=== PATIENT | female | born 1950 | race Two or more races ===

== ENCOUNTER → 2017-05-03 | Outpatient (REF) | payer MEDICARE ==
[2017-05-03 11:35] LABS: MEAN CORPUSCULAR HEMOGLOBIN 33.1 pg (27.0-33.0); MEAN CORPUSCULAR HGB CONC 33.9 g/dl (32.0-36.5); MEAN CORPUSCULAR VOLUME 97.7 fl (80.0-96.0); WHITE BLOOD COUNT 5.6 K/mm3 (4.0-10.0)
[2017-05-03 11:46] LABS: INR 0.89
[2017-05-03 12:06] LABS: ALBUMIN 3.1 GM/DL (3.2-5.2); ALKALINE PHOSPHATASE 66 U/L (45-117); ALT/SGPT 24 U/L (12-78); ANION GAP 6 MEQ/L (8-16); AST/SGOT 11 U/L (15-37); BILIRUBIN,TOTAL 0.4 MG/DL (0.2-1.0); BLOOD UREA NITROGEN 21 MG/DL (7-18); CALCIUM LEVEL 9.2 MG/DL (8.8-10.2); CARBON DIOXIDE LEVEL 31 MEQ/L (21-32); CHLORIDE LEVEL 106 MEQ/L (98-107); CREATININE FOR GFR 0.79 MG/DL (0.55-1.02); GLOMERULAR FILTRATION RATE > 60.0 (>45); GLUCOSE, FASTING 83 MG/DL (80-110); POTASSIUM SERUM 4.3 MEQ/L (3.5-5.1); SODIUM LEVEL 143 MEQ/L (136-145); TOTAL PROTEIN 6.2 GM/DL (6.4-8.2)
== END ==
LOC: M SFHCLERA 09:21
PROVIDERS: ATTEND Family Medicine
DX: I10 Essential (primary) hypertension (principal)

== ENCOUNTER → 2017-05-11 | Outpatient (CLI) | payer MEDICARE ==
--- NOTE | 2017-05-11 18:36 | REP ---
PA AND LATERAL CHEST X-RAY: 05/11/2017: Clinical history: Preoperative clearance. Comparison: There are no prior studies. Findings: Two-view show the lung page well inflated. CP angles sharply defined. No gross evidence for an effusion. There are post-traumatic changes in the left lateral chest wall with a healed and remodeled rib fracture of the left posterolateral 6th rib. Ill-defined density along the left heart border and superimposed over the left anterior 6th rib is noted. There is superimposed increased density and a lens shape over the heart anteriorly on the lateral view corresponds to the same location. No well-defined nodule or mass. The aorta is mildly tortuous without aneurysm. Normal for age and some ectasia. Airway intact. No mediastinal or hilar mass. The bony thorax shows no focal lesion. Impression: 1. Asymmetric density along the left lateral heart border overlying the left anterior 6th rib and left heart border on frontal view and the heart on the lateral view of the chest. This may be epicardial fat pad but in the absence of any other imaging studies available, I could not exclude a lung neoplasm or other process. No effusion or well-defined nodule. If you are aware of the location of any other chest x-rays that are not available to me at this time I would be happy to provide a comparison, otherwise a CT chest is recommended. Signed by Herman Loredo MD 05/11/2017 08:30 P
== END ==
LOC: M LRY 15:59
PROVIDERS: ATTEND Family Medicine
DX: Z01.818 Encounter for other preprocedural examination (principal); M17.11 Unilateral primary osteoarthritis, right knee
CPT/HCPCS: 71020; G0463

== ENCOUNTER → 2017-06-07 | Outpatient (CLI) | payer MEDICARE ==
[~2017-06-07] MED LIST: ISOVUE-370 76% 100ML VIAL (Q9967) As Ordered ONE
--- NOTE | 2017-06-07 20:11 | REP ---
CT chest with IV contrast: History: Abnormal x-ray. Family history of lung carcinoma. Comparison radiographs 05/11/2017. The patient reports known bronchiectasis. Recent radiographs show an symmetric density along the left heart border. CT contrast dose: 75 ml of intravenous Isovue 370. CT findings: Preliminary digital molecular modeler radiograph of the chest is unremarkable. There are clips in right upper quadrant of the abdomen and surgical anchors are seen in the humeral head on the right side. CT findings show no evidence of pleural or pericardial effusion. No hilar or mediastinal mass or adenopathy is seen. No adrenal lesion is observed on either side. There is a cyst in the upper pole left kidney which measures 2.6 cm in greatest diameter. The visualized upper abdominal structures are otherwise unremarkable. No axillary or other extrathoracic mass or adenopathy is seen. Bone window settings show no bony destructive lesion. There is an old healed rib fracture on the left posterolaterally. On lung window settings, there is atelectasis and bronchiectasis in the inferior lingular segment of the left upper lobe. This is felt to be responsible for the ill-defined density visible radiographically in this distribution. There are also some peripheral bronchiectatic changes in the right middle lobe involving both the medial and the lateral segment of the right middle lobe with inspissated endobronchial material and peribronchial thickening along with some fibrosis. There is minimal bronchiectasis in the perihilar region of the right upper lobe. Mild peripheral bronchiectasis or bronchiolectasis is seen in the superior segment right lower lobe. No other parenchymal opacity is seen. No lung mass or significant pulmonary nodule is appreciated. There are granulomatous calcifications in the right lower lobe. Right lower lobe posterior fibrosis is seen. No bony destructive lesion. Impression: There are peripheral bronchiectatic changes in the inferior lingular segment and in both the medial and lateral segments of the right middle lobe. Less prominent bronchiectasis changes are noted elsewhere as above. Some bibasilar fibrotic components are seen. Otherwise no active cardiopulmonary disease. Signed by Ran Mahajan MD 06/08/2017 07:53 A
== END ==
LOC: M RAD 16:59
PROVIDERS: ATTEND Family Medicine
DX: A31.9 Mycobacterial infection, unspecified (principal); J47.9 Bronchiectasis, uncomplicated
CPT/HCPCS: 71260; Q9967

== ENCOUNTER → 2017-08-02 | Outpatient (CLI) | payer MEDICARE ==
--- NOTE | 2017-08-02 15:09 | REP ---
Clinical: Acute abdominal pain. Technique: Two supine views of the abdomen and pelvis. Findings: Bowel gas pattern suggests fecal stasis and constipation. No evidence for bowel obstruction. No organomegaly. Skeletal structures demonstrate degenerative changes along with fixation at the mid to lower lumbar spine. Evidence for prior cholecystectomy. Impression: Findings suggest moderate fecal stasis and possible constipation. Signed by Lemuel Francis MD 08/02/2017 03:01 P
== END ==
LOC: M LRY 14:35
PROVIDERS: ATTEND Family Medicine
DX: R10.9 Unspecified abdominal pain (principal)
CPT/HCPCS: 74000; 80053; 81001; 82150; 83690; 85007; 85027; 87086; G0463

== ENCOUNTER → 2017-08-02 | Outpatient (REF) | payer MEDICARE ==
[2017-08-02 18:11] LABS: ALBUMIN 3.1 GM/DL (3.2-5.2); ALKALINE PHOSPHATASE 79 U/L (45-117); ALT/SGPT 28 U/L (12-78); AMYLASE 52 U/L (25-115); ANION GAP 6 MEQ/L (8-16); AST/SGOT 14 U/L (15-37); BILIRUBIN,TOTAL 0.2 MG/DL (0.2-1.0); BLOOD UREA NITROGEN 21 MG/DL (7-18); CALCIUM LEVEL 8.6 MG/DL (8.8-10.2); CARBON DIOXIDE LEVEL 31 MEQ/L (21-32); CHLORIDE LEVEL 109 MEQ/L (98-107); CREATININE FOR GFR 0.71 MG/DL (0.55-1.02); GLOMERULAR FILTRATION RATE > 60.0 (>45); GLUCOSE, FASTING 79 MG/DL (80-110); POTASSIUM SERUM 4.6 MEQ/L (3.5-5.1); SODIUM LEVEL 146 MEQ/L (136-145); TOTAL PROTEIN 6.2 GM/DL (6.4-8.2)
[2017-08-02 20:00] LABS: MEAN CORPUSCULAR HEMOGLOBIN 32.9 pg (27.0-33.0); MEAN CORPUSCULAR HGB CONC 35.1 g/dl (32.0-36.5); MEAN CORPUSCULAR VOLUME 93.7 fl (80.0-96.0); RED CELL DISTRIBUTION WIDTH 11.9 % (11.5-14.5); WHITE BLOOD COUNT 6.2 K/mm3 (4.0-10.0)
[2017-08-02 21:47] LABS: BASOPHILS 1 % (0-4)
== END ==
LOC: M SFHCLERA 14:31
PROVIDERS: ATTEND Family Medicine
DX: R10.9 Unspecified abdominal pain (principal)

== ENCOUNTER → 2018-10-02 | Outpatient (CLI) | payer MEDICARE | LOC: M RAD 16:22 | DX: R05 Cough (principal) | CPT/HCPCS: 71250 ==

== ENCOUNTER → 2018-10-05 | Outpatient (CLI) | payer MEDICARE ==
[2018-10-05 14:58] LABS: ALBUMIN 3.4 GM/DL (3.2-5.2); ALKALINE PHOSPHATASE 59 U/L (45-117); ALT/SGPT 42 U/L (12-78); ANION GAP 7 MEQ/L (8-16); AST/SGOT 21 U/L (7-37); BILIRUBIN,DIRECT < 0.1 MG/DL (0.0-0.2); BILIRUBIN,TOTAL 0.2 MG/DL (0.2-1.0); BLOOD UREA NITROGEN 20 MG/DL (7-18); CALCIUM LEVEL 9.3 MG/DL (8.8-10.2); CARBON DIOXIDE LEVEL 32 MEQ/L (21-32); CHLORIDE LEVEL 101 MEQ/L (98-107); CREATININE FOR GFR 0.92 MG/DL (0.55-1.30); GLOMERULAR FILTRATION RATE > 60.0 (>45); GLUCOSE, FASTING 90 MG/DL (70-100); POTASSIUM SERUM 4.6 MEQ/L (3.5-5.1); RHEUMATOID FACTOR QUANT 30.6 IU/ML (<15.0); SODIUM LEVEL 140 MEQ/L (136-145); TOTAL PROTEIN 6.8 GM/DL (6.4-8.2)
[2018-10-05 16:19] LABS: ERYTHROCYTE SEDIMENTATION RATE 33 mm/hr (0-30)
[2018-10-11 00:39] LABS: ANCA-ATYPICAL <1:20 titer (Neg:<1:20); ANTI DOUBLE STRAND-DNA AB 1 IU/mL (0-9); ANTINUCLEAR ANTIBODIES DIRECT Negative (Negative); CYTOPLASMIC NEUTROP AB ANCA-C <1:20 titer (Neg:<1:20); PERINUCLEAR AB ANCA-P <1:20 titer (Neg:<1:20); RNP ANTIBODIES <0.2 AI (0.0-0.9); SJOGREN'S ANTI SS-A <0.2 AI (0.0-0.9); SJOGREN'S ANTI SS-B 0.5 AI (0.0-0.9); SMITH ANTIBODIES <0.2 AI (0.0-0.9)
== END ==
LOC: M SMT 11:24
DX: J47.9 Bronchiectasis, uncomplicated (principal); Z79.899 Other long term (current) drug therapy
CPT/HCPCS: 80076

== ENCOUNTER → 2018-11-23 | Outpatient (REF) | payer MEDICARE | LOC: M SFHCPLAZ 15:56 | PROVIDERS: ATTEND Internal Medicine Infectious Disease | DX: A31.0 Pulmonary mycobacterial infection (principal) | CPT/HCPCS: 87070; 87116; 87205; 87206; G0463 ==

== ENCOUNTER → 2018-11-24 | Outpatient (REF) | payer MEDICARE | LOC: M SFHCPLAZ 11:37 | PROVIDERS: ATTEND Dermatology | DX: L85.8 Other specified epidermal thickening (principal); R23.4 Changes in skin texture; D23.5 Other benign neoplasm of skin of trunk ==

== ENCOUNTER → 2018-12-22 | Outpatient (CLI) | payer OTHER ==
--- NOTE | 2019-01-07 00:03 | ECWPNPC ---
PATIENT NAME: CORAL STRATTON : 1950 GENDER: FEMALE VISIT DATE: 12/22/2018 DISCHARGE DATE: 12/22/18 1441 VISIT LOCKED DATE TIME: PHYSICIAN: MIKE MUSTAFA MD RESOURCE: MIKE MUSTAFA MD REASON FOR APPOINTMENT 1. BACK AND LEG PAIN HISTORY OF PRESENT ILLNESS FALL RISK SCREENING: SCREENING :NO FALLS IN THE PAST YEAR 68 YEAR OLD FEMALE PATIENT WITH A HISTORY OF CHRONIC LOW BACK PAIN. THE PATIENT DESCRIBES THE PAIN ACHING, SHOOTING, AND INTERMITTENT WITH A PAIN SCORE OF 3-7/10 DEPENDING ON PHYSICAL ACTIVITY. 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 THE PATIENT STATES THAT SHE HAS HAD 5 SURGERIES AND THE MOST RECENT IMPROVED HER CONDITION, BUT THE PAIN HAS PERSISTED. THE PATIENT SAYS THAT THE PAIN STARTS IN HER LOW BACK AND RADIATES DOWN HER LEFT LEG. THE PATIENT SAYS THAT SHE HAS DIFFICULTY SLEEPING AT NIGHT DUE TO THIS PAIN. THE PATIENT IS CURRENTLY USING HYDROCODONE TO AID IN PAIN RELIEF AND SAYS SHE USES ONE TABLET OR HALF OF A TABLET AT NIGHT. THE PATIENT HAS A HISTORY OF NON-TB MYCOBACTERIUM AVIUM COMPLEX AND SAYS IT IS TAKING A TOLL ON HER HEALTH. PATIENT DENIES UNEXPLAINABLE WEIGHT LOSS, FEVER, CHILLS, NEW CHANGES ON HER URINARY OR BOWEL CONTROL. PAIN SCREENING: PATIENT HAS A COMPLAINT OF ACUTE OR CHRONIC PAIN :YES CURRENT MEDICATIONS TAKING TIMOLOL MALEATE 0.5 % SOLUTION 1 DROP INTO AFFECTED EYE OPHTHALMIC DAILY TAKING FISH OIL 1000 MG CAPSULE 4 CAPSULE ORALLY ONCE A DAY TAKING MULTIVITAMIN - TABLET CHEWABLE ORALLY DAILY TAKING DUONEB TAKING PREDNISONE 20 MG TABLET 1 TAB ORALLY DAILY, NOTES: LAST DOSE 11/09/18; NEEDED TAKING RANITIDINE HCL 150 MG TABLET 1 TABLET AT BEDTIME ORALLY ONCE A DAY TAKING VENLAFAXINE HCL ER 150 MG CAPSULE EXTENDED RELEASE 24 HOUR 2 CAPSULE WITH FOOD ORALLY ONCE A DAY TAKING HYDROCODONE-ACETAMINOPHEN 10-325 MG TABLET 1/2 TABLET NEEDED ORALLY EVERY 6 HRS TAKING VALIUM 2 MG TABLET 1 TABLET NEEDED ORALLY ONCE A DAY TAKING PROAIR HFA 108 (90 BASE) MCG/ACT AEROSOL SOLUTION 2 PUFFS NEEDED INHALATION QID PRN TAKING INCRUSE ELLIPTA 62.5 MCG/INH AEROSOL POWDER BREATH ACTIVATED 1 PUFF INHALATION ONCE A DAY TAKING BREO ELLIPTA 200-25 MCG/INH AEROSOL POWDER BREATH ACTIVATED 1 PUFF INHALATION ONCE A DAY TAKING METOPROLOL SUCCINATE ER 25 MG TABLET EXTENDED RELEASE 24 HOUR 1 TAB ORALLY DAILY TAKING AZITHROMYCIN 250 MG TABLET 1 CAP ORALLY ONCE A DAY TAKING ETHAMBUTOL HCL 400 MG TABLET 4 CAP ORALLY M/W/F TAKING RIFAMPIN 300 MG CAPSULE 2 CAPS ORALLY M/W/F TAKING HYDROCHLOROTHIAZIDE 25 MG TABLET 1 TABLET IN THE MORNING ORALLY ONCE A DAY TAKING TRIAMCINOLONE ACETONIDE 0.1 % CREAM 1 APPLICATION TO AFFECTED AREA EXTERNALLY TWICE A DAY TAKING ACIDOPHILUS 500 MG CAPSULE ORALLY DAILY TAKING MUCINEX 600 MG TABLET EXTENDED RELEASE 1 TABLET NEEDED ORALLY EVERY 12 HRS TAKING METRONIDAZOLE 1 % GEL 1 APPLICATION TO AFFECTED AREA EXTERNALLY ONCE A DAY NOT-TAKING ESTRADIOL 0.1 MG/24HR PATCH TWICE WEEKLY 1 PATCH TO SKIN TRANSDERMAL ONCE TIMES A WEEK NOT-TAKING PROTONIX 40 MG TABLET DELAYED RELEASE 1 TABLET ORALLY ONCE A DAY NOT-TAKING AUGMENTIN 875-125 MG TABLET 1 TABLET ORALLY EVERY 12 HRS NOT-TAKING TUSSIONEX PENNKINETIC ER 10-8 MG/5ML SUSPENSION EXTENDED RELEASE 5 ML NEEDED ORALLY EVERY 12 HRS NOT-TAKING CLONIDINE HCL 0.1 MG TABLET 1 TABLET ORALLY BID NOT-TAKING ROPINIROLE HCL 0.5 MG TABLET 1 TABLET 1 TO 3 HOURS BEFORE BEDTIME ORALLY ONCE A DAY MEDICATION LIST REVIEWED AND RECONCILED WITH THE PATIENT PAST MEDICAL HISTORY HTN BRONCHIECTASIS MAC 04/201810/24/2018 MAC CULTURE NEGATIVE ALLERGIES IVP DYE: HIVES: ALLERGY DITROPAN XL: HIVES: ALLERGY LISINOPRIL: ANAPHYLAXIS: SIDE EFFECTS STATINS (FOR ALLERGY USE ONLY): MUSCLE PAIN: SIDE EFFECTS SURGICAL HISTORY BACK SURGERY X 5 DAVION LAPCOLI LEFT KNEE ARTHROSCOPY RIGHT SHOULDER ARTHROSCOPY VAGINAL SLING TONSILLECTOMY WITH ADENOIDECTOMY CTS WITH CYST REMOVAL LEFT RIGHT HAND TENDON REPAIR RIGHT KNEE ARTHROSCOPY FAMILY HISTORY FATHER: , DIAGNOSED WITH CANCER MOTHER: , DIAGNOSED WITH DIABETES, HYPERTENSION, HEART DISEASE PATERNAL GRAND FATHER: UNKNOWN PATERNAL GRAND MOTHER: UNKNOWN, DIAGNOSED WITH CANCER MATERNAL GRAND FATHER: UNKNOWN MATERNAL GRAND MOTHER: UNKNOWN 5 BROTHER(S) , 1 SISTER(S) . 2 SON(S) , 1 DAUGHTER(S) - HEALTHY. FATHER: MULTIPLE CANCERSPGM: PARATHYROID CA2 BROTHERS: DECEASD OF PROSTATE CA, THE OTHER 3 ALSO HAD PROSTATE CASISTER: MELANOMA ON FACESON - HYPERTENSION, KIDNEY STONESSON - GOUT. SOCIAL HISTORY GENERAL: TOBACCO USE ARE YOU A:FORMER SMOKER HOW LONG HAS IT BEEN SINCE YOU LAST SMOKED?> 10 YEARS BMI CARE GOAL FOLLOW-UP ABOVE NORMAL BMI FOLLOW-UPDIETARY MANAGEMENT EDUCATION, GUIDANCE, AND COUNSELING ALCOHOL SCREENING DID YOU HAVE A DRINK CONTAINING ALCOHOL IN THE PAST YEAR?NO POINTS0 INTERPRETATIONNEGATIVE RECREATIONAL DRUG USE DRUG USE?NO CAFFEINE CAFFEINE USE?YES 2 SEXUAL HX HAD SEX IN THE LAST 12 MONTHS (VAGINAL, ORAL, OR ANAL)?NO HAVE YOU EVER HAD AN STD?NO HIV / HEP-C SCREENING HIV TEST OFFERED TO PATIENT:YES DATE OFFERED:10/26/2018 TEST ACCEPTED:YES HEP-C TEST OFFERED TO PATIENT:YES DATE OFFERED:10/26/2018 TEST ACCEPTED:YES BROCHURE PROVIDED TO PATIENTYES HOAHAOISM [id number] [employer]RIAN [employer]ANG[employer] LANGUAGES SPOKEN:KITTITIAN EDUCATION LEVEL OF EDUCATION:FINISHED COLLEGE LEARNING BARRIERS / SPECIAL NEEDS CHANGE FROM LAST VISIT?NO BARRIERS TO LEARNING?NO HEARING IMPAIRED?NO VISION IMPAIRED?YES COGNITIVELY IMPAIRED?NO :CORRECTIVE LENSES READINESS TO LEARN?YES LEARNING PREFERENCES?NO LEARNING CAPABILITIES PRESENT?YES EMOTIONAL BARRIERS?NO SPECIAL DEVICES?NO LONG TERM CARE PHARMACIST NEEDED?NO DOMESTIC VIOLENCE DO YOU FEEL SAFE IN YOUR ENVIRONMENT?YES OCCUPATION: RETIRED NURSE. DIET: REGULAR. EXERCISE: WALKS. MARITAL STATUS: .. OTHERS AT HOME: DAUGHTER . PAIN CLINIC PFS, CLERGY, PUBLIC HEALTH REFERRALS HAS THE PATIENT BEEN EDUCATED REGARDING HIS/HER PLAN OF CARE?YES HAS THE PATIENT BEEN EDUCATED REGARDING PAIN, THE RISK FOR PAIN, THE IMPORTANCE OF EFFECTIVE PAIN MANAGEMENT, AND THE PAIN ASSESSMENT PROCESS?YES HOUSING: OWNS HOME. ADVANCE DIRECTIVE ADVANCE DIRECTIVE DISCUSSED WITH PATIENT:YES DECLINED HCP INFORMATION. REVIEWED WITH PATIENT 12/22/18 1341 JS. HOSPITALIZATION/MAJOR DIAGNOSTIC PROCEDURE PNEUMONIA MULTIPE TIMES SURGERY-RELATED REVIEW OF SYSTEMS REVIEWED BY: PROVIDER: MIKE MUSTAFA MD . CONSTITUTIONAL: ANY CHANGE IN YOUR MEDICAL CONDITION? NO . CHILLS NO . FEVER NO . INFECTION: DO YOU HAVE NEW INFECTIONS? NO . DO YOU HAVE HISTORY OF MRSA? NO . MUSCULOSKELETAL: ANY NEW PATTERNS OF PAIN OR NUMBNESS? NO . SYTEMIC LUPUS NO . GASTROENTEROLOGY: ANY NEW CHANGE IN BOWEL CONTROL? NO . BARRETTS ESOPHAGUS NO . CIRRHOSIS NO . HEPATITIS NO . LIVER FAILURE NO . ACID REFLUX YES . UNEXPLAINED WEIGHT LOSS NO . GENITOURINARY: ANY NEW CHANGE IN BLADDER CONTROL? NO . IS THERE A CHANCE YOU COULD BE ? NO . HEMATOLOGY/LYMPH: DO YOU TAKE ANY BLOOD THINNERS? (FOR EXAMPLE- COUMADIN, PLAVIX, AGGRENOX, PLATEL, PRADAXA, OR XARELTO) NO . WHEN WAS YOUR LAST DOSE? DATE: TIME: . LOW PLATELET COUNT NO . SICKLE CELL DISEASE NO . VON WILLIEBRANDS NO . FACTOR V LEIDEN NO . THALLASEMIA NO . ANEMIA NO . EASY BRUISING NO . NEUROLOGY: HAVE YOU FALLEN IN THE PAST 12 MONTHS? NO . ANY NEW EXTREMITY NUMBNESS OR WEAKNESS? NO . HEAD INJURY YES, CONCUSSION APPROX 2 YEARS AGO . DEMENTIA NO . CEREBRAL PALSY NO . MULTIPLE SCLEROSIS NO . DIZZINESS INTERMITTENT . HEADACHE NO . STROKES NO . VERTIGO NO . CARDIOLOGY: DO YOU HAVE A PACEMAKER OR DEFIBRILLATOR? NO . ANGINA NO . HEART ATTACK NO . HEART SURGERY NO . CONGESTIVE HEART FAILURE/FLUID OVERLOAD NO . CHEST PAIN NO . HIGH BLOOD PRESSURE ON MEDICATION(S) . IRREGULAR HEART BEAT OCCASIONALLY . RESPIRATORY: HAVE YOU BEEN SICK IN THE PAST WEEK? NO . FEVER NO . FLU LIKE SYMPTOMS? NO . CPAP NO . BYPAP NO . ASTHMA NO . EMPHYSEMA NO . CHRONIC LUNG DISEASES YES, NTMAC . SHORTNESS OF BREATH ON EXERTION NO . COUGH NO . SNORING NO . INTEGUMENTARY: DO YOU HAVE ANY RASHES OR OPEN SORES? YES, SCATTERED SORES, BIOPSY PERFORMED BY DERMATOLOGY, MAY BE RELATED TO MAC OR MAY BE A FUNGAL INFECTION . ALLERGIC/IMMUNO: ARE YOU ALLERGIC TO IV DYE? YES, IV DYE . ANY NEW ALLERGIES? NO . PSYCHIATRIC: DO YOU HAVE THOUGHTS OF HURTING YOURSELF OR SOMEONE ELSE? YES, STATES THOUGHTS OF HURTING HERSELF DUE TO DEPRESSION AND DECLINING HEALTH. STATES SHE HAS TALKED TO PEOPLE IN THE PAST AND SAYS SHE WON'T HURT HERSELF BEFORE TALKING TO SOMEONE AND THAT SHE FEELS STABLE AT THIS TIME. WILL NOTIFY DR. MUSTAFA . ARE YOU ABUSED, NEGLECTED, OR IN AN UNSAFE ENVIRONMENT? NO . ENDOCRINOLOGY: ARE YOU DIABETIC? NO . THYROID DISORDER THYROID NODULE . OTHER: DO YOU NEED ANY PRESCRIPTIONS? YES . IF YES, PLEASE LIST: ____HYDROCODONE, VALIUM . ANY NEW PROBLEMS WITH YOUR MEDICATIONS? NO . WHEN DID YOU LAST EAT? ____ . WHEN DID YOU LAST DRINK? ____ . WHAT DID YOU LAST DRINK? ____ . NAME OF PERSON DRIVING YOU HOME? ____ . DO YOU HAVE ANY OTHER QUESTIONS OR CONCERNS NO . VITAL SIGNS WT 227.8 LBS, HT 68 IN, BMI 34.63 INDEX, BP 167/88 MM HG, HR 72 /MIN, RR 18 /MIN, TEMP 97.4 F, OXYGEN SAT % 95%, SAFE IN ENV? (Y/N) YES, NA INITIALS AW 1327, REVIEWED BY: JS. EXAMINATION GENERAL EXAMINATION: PATIENT IS ALERT O X 3 AND COOPERATIVE. SOME CRACKLES IN LUNGS. HEART: NO MURMURS OR GALLOPS; FACIAL CRANIAL NERVES ARE GROSSLY NORMAL. GOOD SYMMETRY OF FACIAL MUSCLE MOVEMENT. NORMAL VISUAL RIVAS. TENDERNESS IN THE LOW BACK AREA. PAIN INCREASES OVER THE LUMBAR FACET JOINTS WITH EXTENSION AND LATERAL ROTATION OF THE BACK. LEFT LEG IS WEAKER AT EXTENSION AND FLEXION. ASSESSMENTS LOW BACK PAIN - M54.5 (PRIMARY) OTHER CHRONIC PAIN - G89.29 LUMBAR POST-LAMINECTOMY SYNDROME - M96.1 LUMBAR RADICULOPATHY - M54.16 TREATMENT LOW BACK PAIN CLINICAL NOTES: WE DISCUSSED SEVERAL ISSUES WITH MRS. STRATTON'S PAIN MANAGEMENT CASE. THE PATIENT WILL BRING COPIES OF HER MOST RECENT LUMBAR MRI'S TO HER NEXT VISIT. I WILL SEND A PROVIDER TO PROVIDER AGREEMENT FORM TO DR. WALDRON REGARDING THE PATIENT'S HYDROCODONE. THE PATIENT SAYS SHE IS ONLY USING 15 TABLETS PER MONTH, SO I WILL GIVE HER A REFILL FOR THE MONTH. ISTOP _[id number] WAS REVIEWED. THE PATIENT WILL FOLLOW UP IN 4-5 WEEKS. INSTRUCTIONS WERE GIVEN, QUESTIONS WERE ANSWERED, PATIENT REPORTS UNDERSTANDING AND AGREES WITH THE PLAN. I, DALE MACIEL, DOCUMENTED THE ABOVE INFORMATION ACTING A SCRIBE FOR DR. MUSTAFA. I HAVE REVIEWED THE ABOVE DOCUMENT, WRITTEN BY DALE WOODRUFF AND I VERIFY THAT IT IS ACCURATE. DEAR DR. SALCEDO:THANK YOU FOR YOUR KIND REFERRAL OF MRS. STRATTON. IF YOU WANT TO DISCUSS HER CASE WITH ME PLEASE CALL ME AT THE PAIN CENTER AT [phone]. SINCERELY,MIKE MUSTAFA, [facility]. OTHERS REFILL HYDROCODONE-ACETAMINOPHEN TABLET, 10-325 MG, 1 TABLET NEEDED, ORALLY FOR PAIN, DAILY MDD1, 30 DAY(S), 15, REFILLS 0 PROCEDURES PN WORKMANS' COMP OPINION IN YOUR OPINION, WAS THE INCIDENT THAT THE PATIENT DESCRIBED THE COMPETENT MEDICAL CAUSE OF THIS INJURY/ILLNESS? YES ARE THE PATIENT'S COMPLAINTS CONSISTENT WITH HIS/HER HISTORY OF THE INJURY/ILLNESS? YES IS THE PATIENT'S HISTORY OF THE INJURY/ILLNESS CONSISTENT WITH YOUR OBJECTIVE FINDING? YES WHAT IS THE PERCENTAGE OF TEMPORARY IMPAIRMENT? MODERATE TO MARKED = 66.7% IS THE PATIENT WORKING? NO DOCTOR ON SITE: MIKE DEVI MD PROCEDURE CODES FA211 ESTABILISHED PATIENT [facility] FACILITY CHARGE G8427 CURRENT MEDS W/DOSAGES DOCUMENTED G8730 PAIN ASSESS POS TOOL F/U PLAN DOC DISPOSITION & COMMUNICATION FOLLOW UP 4-5 WEEKS (REASON: W/C LOW BACK) ELECTRONICALLY SIGNED BY MIKE MUSTAFA MD, MD ON 01/06/2019 AT 05:18 PM EST DISCLAIMER : THIS IS A VISIT SUMMARY EXTRACTED FROM THE [employer] CHART. IT IS NOT A COPY OF THE [employer] PROGRESS NOTE. TERESA
== END ==
LOC: M PAIN 13:15
PROVIDERS: ATTEND Anesthesiology
DX: M54.16 Radiculopathy, lumbar region (principal); M96.1 Postlaminectomy syndrome, not elsewhere classified; I10 Essential (primary) hypertension; J47.9 Bronchiectasis, uncomplicated; K21.9 Gastro-esophageal reflux disease without esophagitis; F32.9 Major depressive disorder, single episode, unspecified; Z79.52 Long term (current) use of systemic steroids; Z79.51 Long term (current) use of inhaled steroids; Z79.2 Long term (current) use of antibiotics; Z79.899 Other long term (current) drug therapy; Z88.8 Allergy status to other drugs, medicaments and biological substances; Z91.041 Radiographic dye allergy status; Z87.891 Personal history of nicotine dependence

== ENCOUNTER → 2019-02-12 | Outpatient (CLI) | payer OTHER ==
--- NOTE | 2019-02-25 23:34 | ECWPNPC ---
PATIENT NAME: CORAL STRATTON : 1950 GENDER: FEMALE VISIT DATE: 02/12/2019 DISCHARGE DATE: 02/12/19 0000 VISIT LOCKED DATE TIME: PHYSICIAN: MIKE MUSTAFA MD RESOURCE: MIKE MUSTAFA MD REASON FOR APPOINTMENT 1. PENDING AUTH LUMBAR SPINE (L3, L4, L5) ONLY HISTORY OF PRESENT ILLNESS HISTORY OF PRESENT ILLNESS: PAIN THE PATIENT DESCRIBES THE PAIN... 68 YEAR OLD FEMALE PATIENT WITH A HISTORY OF CHRONIC LOW BACK PAIN. THE PATIENT DESCRIBES THE PAIN ACHING, BURNING, SHARP, STABBING, AND CONTINUOUS WITH A PAIN SCORE OF 1-9/10 DEPENDING ON PHYSICAL ACTIVITY. 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 THE PATIENT STATES SHE IS CURRENTLY USING HALF A TABLET OF HYDROCODONE PER DAY TO AID IN PAIN RELIEF. THE PATIENT SAYS THAT THE USE OF THIS MEDICATION HELPS HER REMAIN MOBILE AND FUNCTIONAL. THE PATIENT HAS A HISTORY OF NON-TB MYCOBACTERIUM AVIUM COMPLEX. PATIENT DENIES UNEXPLAINABLE WEIGHT LOSS, FEVER, CHILLS, NEW CHANGES ON HER URINARY OR BOWEL CONTROL. FALL RISK SCREENING: SCREENING : NO FALLS IN THE PAST YEAR. CURRENT MEDICATIONS TAKING HYDROCODONE-ACETAMINOPHEN 10-325 MG TABLET 1/2 TABLET NEEDED ORALLY FOR PAIN DAILY MDD1 TAKING BETAMETHASONE DIPROPIONATE AUG 0.05 % OINTMENT 1 APPLICATION TO AFFECTED AREA EXTERNALLY BID TO AREAS ON BODY WITH RASH (NOT FOR FACE, GROIN, ARMPITS) UNTIL RESOLUTION TAKING TIMOLOL MALEATE 0.5 % SOLUTION 1 DROP INTO AFFECTED EYE OPHTHALMIC DAILY TAKING FISH OIL 1000 MG CAPSULE 4 CAPSULE ORALLY ONCE A DAY TAKING MULTIVITAMIN - TABLET CHEWABLE ORALLY DAILY TAKING DUONEB NEBULIZER NEEDED TAKING RANITIDINE HCL 150 MG TABLET 1 TABLET AT BEDTIME ORALLY ONCE A DAY TAKING VENLAFAXINE HCL ER 150 MG CAPSULE EXTENDED RELEASE 24 HOUR 2 CAPSULE WITH FOOD ORALLY ONCE A DAY TAKING PROAIR HFA 108 (90 BASE) MCG/ACT AEROSOL SOLUTION 2 PUFFS NEEDED INHALATION QID PRN TAKING INCRUSE ELLIPTA 62.5 MCG/INH AEROSOL POWDER BREATH ACTIVATED 1 PUFF INHALATION ONCE A DAY TAKING BREO ELLIPTA 200-25 MCG/INH AEROSOL POWDER BREATH ACTIVATED 1 PUFF INHALATION ONCE A DAY TAKING METOPROLOL SUCCINATE ER 25 MG TABLET EXTENDED RELEASE 24 HOUR 1 TAB ORALLY DAILY TAKING HYDROCHLOROTHIAZIDE 25 MG TABLET 1 TABLET IN THE MORNING ORALLY ONCE A DAY TAKING ACIDOPHILUS 500 MG CAPSULE ORALLY DAILY TAKING MUCINEX 600 MG TABLET EXTENDED RELEASE 1 TABLET NEEDED ORALLY EVERY 12 HRS TAKING METRONIDAZOLE 1 % GEL 1 APPLICATION TO AFFECTED AREA EXTERNALLY ONCE A DAY TAKING RIFAMPIN 300 MG CAPSULE 2 CAPS ORALLY M/W/F TAKING ETHAMBUTOL HCL 400 MG TABLET 4 CAP ORALLY M/W/F TAKING AZITHROMYCIN 500 MG TABLET 1 CAP ORALLY THREE TIMES A WEEK NOT-TAKING PREDNISONE 20 MG TABLET 1 TAB ORALLY DAILY NOT-TAKING VALIUM 2 MG TABLET 1 TABLET NEEDED ORALLY ONCE A DAY NOT-TAKING ESTRADIOL 0.1 MG/24HR PATCH TWICE WEEKLY 1 PATCH TO SKIN TRANSDERMAL ONCE TIMES A WEEK NOT-TAKING PROTONIX 40 MG TABLET DELAYED RELEASE 1 TABLET ORALLY ONCE A DAY NOT-TAKING AUGMENTIN 875-125 MG TABLET 1 TABLET ORALLY EVERY 12 HRS NOT-TAKING TUSSIONEX PENNKINETIC ER 10-8 MG/5ML SUSPENSION EXTENDED RELEASE 5 ML NEEDED ORALLY EVERY 12 HRS NOT-TAKING CLONIDINE HCL 0.1 MG TABLET 1 TABLET ORALLY BID NOT-TAKING ROPINIROLE HCL 0.5 MG TABLET 1 TABLET 1 TO 3 HOURS BEFORE BEDTIME ORALLY ONCE A DAY MEDICATION LIST REVIEWED AND RECONCILED WITH THE PATIENT PAST MEDICAL HISTORY HTN BRONCHIECTASIS MAC 04/201810/24/2018 MAC CULTURE NEGATIVE LOW BACK PAIN LUMBAR RADICULOPATHY POST-LAMINECTOMY PAIN SYNDROME THYROID NODULE ALLERGIES IVP DYE: HIVES - ALLERGY DITROPAN XL: HIVES - ALLERGY LISINOPRIL: ANAPHYLAXIS - SIDE EFFECTS STATINS (FOR ALLERGY USE ONLY): MUSCLE PAIN - SIDE EFFECTS SURGICAL HISTORY BACK SURGERY X 5 DAVION LAPCOLI LEFT KNEE ARTHROSCOPY RIGHT SHOULDER ARTHROSCOPY VAGINAL SLING TONSILLECTOMY WITH ADENOIDECTOMY CTS WITH CYST REMOVAL LEFT RIGHT HAND TENDON REPAIR RIGHT KNEE ARTHROSCOPY LEFT BREAST BIOPSY 1997 FAMILY HISTORY FATHER: , DIAGNOSED WITH CANCER MOTHER: , HEART DISEASE, DIABETES, HYPERTENSION PATERNAL GRAND FATHER: UNKNOWN PATERNAL GRAND MOTHER: UNKNOWN, CANCER MATERNAL GRAND FATHER: UNKNOWN MATERNAL GRAND MOTHER: UNKNOWN 5 BROTHER(S) , 1 SISTER(S) . 2 SON(S) , 1 DAUGHTER(S) - HEALTHY. FATHER: MULTIPLE CANCERS\NPGM: PARATHYROID CA\N2 BROTHERS: DECEASD OF PROSTATE CA, THE OTHER 3 ALSO HAD PROSTATE CA\NSISTER: MELANOMA ON FACE\NSON - HYPERTENSION, KIDNEY STONES\NSON - GOUT\N. SOCIAL HISTORY GENERAL: TOBACCO USE ARE YOU A:FORMER SMOKER HOW LONG HAS IT BEEN SINCE YOU LAST SMOKED?> 10 YEARS BMI CARE GOAL FOLLOW-UP ABOVE NORMAL BMI FOLLOW-UPDIETARY MANAGEMENT EDUCATION, GUIDANCE, AND COUNSELING ALCOHOL SCREENING DID YOU HAVE A DRINK CONTAINING ALCOHOL IN THE PAST YEAR?NO POINTS0 INTERPRETATIONNEGATIVE RECREATIONAL DRUG USE DRUG USE?NO CAFFEINE CAFFEINE USE?YES 1 SEXUAL HX HAD SEX IN THE LAST 12 MONTHS (VAGINAL, ORAL, OR ANAL)?NO HAVE YOU EVER HAD AN STD?NO HIV / HEP-C SCREENING HIV TEST OFFERED TO PATIENT:YES DATE OFFERED:10/26/2018 TEST ACCEPTED:YES HEP-C TEST OFFERED TO PATIENT:YES DATE OFFERED:10/26/2018 TEST ACCEPTED:YES BROCHURE PROVIDED TO PATIENTYES [id number] [employer] LANGUAGES SPOKEN:ESTONIAN EDUCATION LEVEL OF EDUCATION:FINISHED COLLEGE LEARNING BARRIERS / SPECIAL NEEDS CHANGE FROM LAST VISIT?NO BARRIERS TO LEARNING?NO HEARING IMPAIRED?NO VISION IMPAIRED?YES COGNITIVELY IMPAIRED?NO :CORRECTIVE LENSES READINESS TO LEARN?YES LEARNING PREFERENCES?NO LEARNING CAPABILITIES PRESENT?YES EMOTIONAL BARRIERS?NO SPECIAL DEVICES?NO COMPENSATION SPECIALIST NEEDED?NO DOMESTIC VIOLENCE DO YOU FEEL SAFE IN YOUR ENVIRONMENT?YES OCCUPATION: RETIRED NURSE. DIET: REGULAR. EXERCISE: WALKS. MARITAL STATUS: .. OTHERS AT HOME: DAUGHTER . PAIN CLINIC PFS, CLERGY, PUBLIC HEALTH REFERRALS HAS THE PATIENT BEEN EDUCATED REGARDING HIS/HER PLAN OF CARE?YES HAS THE PATIENT BEEN EDUCATED REGARDING PAIN, THE RISK FOR PAIN, THE IMPORTANCE OF EFFECTIVE PAIN MANAGEMENT, AND THE PAIN ASSESSMENT PROCESS?YES HOUSING: OWNS HOME. ADVANCE DIRECTIVE ADVANCE DIRECTIVE DISCUSSED WITH PATIENT:YES DECLINED HCP INFORMATION. REVIEWED WITH PATIENT 12/22/18 1341 JS. HOSPITALIZATION/MAJOR DIAGNOSTIC PROCEDURE PNEUMONIA MULTIPE TIMES SURGERY-RELATED REVIEW OF SYSTEMS REVIEWED BY: PROVIDER: MIKE MUSTAFA MD . CONSTITUTIONAL: ANY CHANGE IN YOUR MEDICAL CONDITION? NO . CHILLS NO . FEVER NO . INFECTION: DO YOU HAVE NEW INFECTIONS? ONGOING . DO YOU HAVE HISTORY OF MRSA? NO . MUSCULOSKELETAL: ANY NEW PATTERNS OF PAIN OR NUMBNESS? YES- ACCIDENT/FALL . GASTROENTEROLOGY: ANY NEW CHANGE IN BOWEL CONTROL? NO . GENITOURINARY: ANY NEW CHANGE IN BLADDER CONTROL? NO . IS THERE A CHANCE YOU COULD BE ? NO . HEMATOLOGY/LYMPH: DO YOU TAKE ANY BLOOD THINNERS? (FOR EXAMPLE- COUMADIN, PLAVIX, AGGRENOX, PLATEL, PRADAXA, OR XARELTO) NO . WHEN WAS YOUR LAST DOSE? DATE: TIME: . NEUROLOGY: HAVE YOU FALLEN IN THE PAST 12 MONTHS? YES - TUESDAY BEFORE LAST . ANY NEW EXTREMITY NUMBNESS OR WEAKNESS? NO . CARDIOLOGY: DO YOU HAVE A PACEMAKER OR DEFIBRILLATOR? NO . RESPIRATORY: HAVE YOU BEEN SICK IN THE PAST WEEK? NO . FEVER NO . FLU LIKE SYMPTOMS? NO . COUGH YES - ONGIONG COUGH . INTEGUMENTARY: DO YOU HAVE ANY RASHES OR OPEN SORES? YES . ALLERGIC/IMMUNO: ARE YOU ALLERGIC TO IV DYE? YES . ANY NEW ALLERGIES? NO . PSYCHIATRIC: DO YOU HAVE THOUGHTS OF HURTING YOURSELF OR SOMEONE ELSE? NO . ARE YOU ABUSED, NEGLECTED, OR IN AN UNSAFE ENVIRONMENT? NO . ENDOCRINOLOGY: ARE YOU DIABETIC? NO . OTHER: DO YOU NEED ANY PRESCRIPTIONS? MAYBE . IF YES, PLEASE LIST: ____ . ANY NEW PROBLEMS WITH YOUR MEDICATIONS? NO . WHEN DID YOU LAST EAT? ____ . WHEN DID YOU LAST DRINK? ____ . WHAT DID YOU LAST DRINK? ____ . NAME OF PERSON DRIVING YOU HOME? ____ . DO YOU HAVE ANY OTHER QUESTIONS OR CONCERNS YES - FELL ON ICE WHEN LEFT LEG GAVE OUT - NEW INJURIES . VITAL SIGNS WT 235.6 LBS, HT 68 IN, BMI 35.82 INDEX, BP 144/76 MM HG, HR 77 /MIN, RR 18 /MIN, TEMP 96.9 F, OXYGEN SAT % 97%, NA INITIALS AW 0950, REVIEWED BY: LS. EXAMINATION GENERAL EXAMINATION: PATIENT IS ALERT O X 3 AND COOPERATIVE. TENDERNESS IN THE LOW BACK AREA. ASSESSMENTS LOW BACK PAIN - M54.5 (PRIMARY) OTHER CHRONIC PAIN - G89.29 LUMBAR POST-LAMINECTOMY SYNDROME - M96.1 TREATMENT LOW BACK PAIN CLINICAL NOTES: WE DISCUSSED SEVERAL ISSUES WITH MRS. STRATTON'S PAIN MANAGEMENT CASE. THE PATIENT WILL BRING HER LUMBAR MRI TO HER NEXT APPOINTMENT. WE RECEIVED THE PROVIDER TO PROVIDER AGREEMENT FROM DR. WALDRON AND HE IS NOT COMFORTABLE PRESCRIBING OPIOIDS, SO WE WILL BE REDUCING THE PATIENT'S MEDICATIONS SLOWLY. THE PATIENT IS ONLY USING 15 HYDROCODONE PER MONTH, SO SHE WILL CONTINUE WITH THAT AMOUNT FOR NOW. ISTOP _#[id number] WAS REVIEWED. THE PATIENT WILL FOLLOW UP IN 6 WEEKS. INSTRUCTIONS WERE GIVEN, QUESTIONS WERE ANSWERED, PATIENT REPORTS UNDERSTANDING AND AGREES WITH THE PLAN. I, DALE MACIEL, DOCUMENTED THE ABOVE INFORMATION ACTING A SCRIBE FOR DR. MUSTAFA. I HAVE REVIEWED THE ABOVE DOCUMENT, WRITTEN BY DALE SHERMANIBIvelisse AND I VERIFY THAT IT IS ACCURATE. . OTHERS REFILL HYDROCODONE-ACETAMINOPHEN TABLET, 10-325 MG, 1/2 TABLET NEEDED, ORALLY FOR PAIN, DAILY MDD1, 30 DAY(S), 15, REFILLS 0 PROCEDURES PN WORKMANS' COMP OPINION IN YOUR OPINION, WAS THE INCIDENT THAT THE PATIENT DESCRIBED THE COMPETENT MEDICAL CAUSE OF THIS INJURY/ILLNESS? YES ARE THE PATIENT'S COMPLAINTS CONSISTENT WITH HIS/HER HISTORY OF THE INJURY/ILLNESS? YES IS THE PATIENT'S HISTORY OF THE INJURY/ILLNESS CONSISTENT WITH YOUR OBJECTIVE FINDING? YES WHAT IS THE PERCENTAGE OF TEMPORARY IMPAIRMENT? MODERATE TO MARKED = 66.7% IS THE PATIENT WORKING? NO DOCTOR ON SITE: MIKE DEVI MD PROCEDURE CODES FA211 ESTABILISHED PATIENT [facility] FACILITY CHARGE G8427 CURRENT MEDS W/DOSAGES DOCUMENTED G8730 PAIN ASSESS POS TOOL F/U PLAN DOC DISPOSITION & COMMUNICATION FOLLOW UP 6 WEEKS ELECTRONICALLY SIGNED BY MIKE MUSTAFA MD, MD ON 02/25/2019 AT 03:36 PM EDT DISCLAIMER : THIS IS A VISIT SUMMARY EXTRACTED FROM THE [employer] CHART. IT IS NOT A COPY OF THE [employer] PROGRESS NOTE. MTDD
== END ==
LOC: M PAIN 09:45
PROVIDERS: ATTEND Anesthesiology
DX: M54.5 Low back pain (principal); G89.29 Other chronic pain; M96.1 Postlaminectomy syndrome, not elsewhere classified; I10 Essential (primary) hypertension; Z79.891 Long term (current) use of opiate analgesic; Z79.899 Other long term (current) drug therapy; Z87.891 Personal history of nicotine dependence; Z91.041 Radiographic dye allergy status; Z88.8 Allergy status to other drugs, medicaments and biological substances

== ENCOUNTER → 2019-02-15 | Outpatient (CLI) | payer MEDICARE ==
--- NOTE | 2019-02-15 14:26 | REP ---
Left knee: Five views. History: Pain. Findings: Five views of the left knee demonstrate medial, patellofemoral, and to a lesser extent lateral compartment spurring. There is mild joint space narrowing medially. No erosive changes seen. Impression: Three compartment osteoarthritis. No acute bony abnormality. No fracture seen. Electronically Signed by Ran Mahajan MD 02/15/2019 02:17 P
--- NOTE | 2019-02-15 15:00 | REP ---
LEFT FOOT: Four views. HISTORY: Pain. FINDINGS: Four views of the left foot demonstrate overall normal mineralization. There is a mild hallux valgus. A os naviculare is noted incidentally. There is mild osteoarthritic spurring at the 1st MTP joint. No erosive changes seen. Study is otherwise unremarkable. IMPRESSION: Mild hallux valgus and first MTP joint osteoarthritic spurring. Electronically Signed by Ran Mahajan MD 02/15/2019 03:26 P
--- NOTE | 2019-02-15 15:04 | REP ---
ULTRASOUND RIGHT BICEPS: Real-time sonographic evaluation of the right biceps muscle and tendon performed. The superior aspect of the right biceps tendon appears intact and well positioned in the bicipital groove. There is trace fluid along the anterior aspect of the tendon. More inferiorly in the superior aspect of the biceps muscle, there are two areas of heterogeneous echotexture, which may represent intramuscular hematomas, measuring 2.5 x 0.6 x 3.2 cm and 1.2 x 0.7 x 1.2 cm. I suspect these represent areas of muscle tears. The inferior biceps tendon at the elbow appears intact. There is mild surrounding fluid. Electronically Signed by Diego Swann MD 02/15/2019 03:17 P
== END ==
LOC: M RAD 12:38
PROVIDERS: ATTEND Family Medicine
DX: M20.12 Hallux valgus (acquired), left foot (principal); M25.775 Osteophyte, left foot; M17.12 Unilateral primary osteoarthritis, left knee
CPT/HCPCS: 36415; 73564; 73630; 76882; 80053; 85027; G0463